=== PATIENT | female | born 1990 | race Caucasian/White ===

== ENCOUNTER 2017-09-17 23:10 | Emergency (ER) | payer OTHER ==
[~2017-09-17] VITALS: Ht 154.9 cm; Wt 108.9 kg
[2017-09-17 23:17] VITALS: BP 124/76
--- NOTE | 2017-09-17 23:26 | NUR ---
PT TAKEN TO BED 8
--- NOTE | 2017-09-17 23:28 | NUR ---
Dr. Johnson evaluating patient at bedside.
[2017-09-17 23:33] VITALS: BP 124/76
[2017-09-17] MEDS ORDERED: KETOROLAC 30 MG/ML VIAL IM ONE (23:35)
--- NOTE | 2017-09-17 23:35 | NUR ---
PATIENT PRESENTS TO ED WITH C/O LOWER BACK PAIN, S/O FALL FROM WHEELCHAIR MED HX: SPINA BIFIDA PT DENIES N/V/D; SKIN IS PINK/WARM/DRY; AAOX4. LUNGS CLEAR BL; HR EVEN AND REGULAR; PT DENIES ANY FEVER, CP, SOB, OR COUGH AT THIS TIME; PATIENT STATES PAIN OF 8/10 AT THIS TIME; VSS; PATIENT POSITIONED FOR COMFORT; HOB ELEVATED; BEDRAILS UP X2; BED DOWN. ER MD MADE AWARE OF PT STATUS.
--- NOTE | 2017-09-18 00:17 | NUR ---
PT RETURN FROM XRAY
--- NOTE | 2017-09-18 00:41 | NUR ---
Patient discharged with v/s stable. Written and verbal after care instructions given and explained. Patient alert, oriented and verbalized understanding of instructions. Ambulatory with steady gait. All questions addressed prior to discharge. ID band removed. Patient advised to follow up with PMD. Rx of NAPROSYN AND FLEXERIL given. Patient educated on indication of medication including possible reaction and side effects. Opportunity to ask questions provided and answered.
== END 2017-09-18 00:41 | disposition home or self-care (01) ==
LOC: MED 23:10
DX: S39.012A Strain of muscle, fascia and tendon of lower back, initial encounter (principal); Z88.5 Allergy status to narcotic agent; W18.30XA Fall on same level, unspecified, initial encounter; Y93.89 Activity, other specified; Y92.89 Other specified places as the place of occurrence of the external cause; Y99.8 Other external cause status
CPT/HCPCS: 72110; 81025; 96372; 99284; J1885; 99283